=== PATIENT | female | born 1995 | race Caucasian/White ===

== ENCOUNTER 2023-02-02 16:31 | Emergency (ER) | payer MEDICAID ==
[~2023-02-02] VITALS: Ht 127 cm; Wt 33.6 kg
== END 2023-02-02 21:25 | disposition left against medical advice (07) ==
LOC: ED 16:31
DX: S01.81XA Laceration without foreign body of other part of head, initial encounter (principal); S40.012A Contusion of left shoulder, initial encounter; G91.9 Hydrocephalus, unspecified; M41.9 Scoliosis, unspecified; Z98.2 Presence of cerebrospinal fluid drainage device; Z99.3 Dependence on wheelchair; W05.0XXA Fall from non-moving wheelchair, initial encounter; S42.002A Fracture of unspecified part of left clavicle, initial encounter for closed fracture; Z53.29 Procedure and treatment not carried out because of patient's decision for other reasons